=== PATIENT | female | born 1980 | race Two or more races ===

== ENCOUNTER 2017-05-12 14:19 | Emergency (ER) | payer MEDICARE, MEDICAID ==
--- NOTE | 2017-05-12 15:36 | EDM.PDOC ---
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 Time Seen by Provider: 05/12/17 15:00 Source of Information: Reports: Patient History Limitations: Reports: No Limitations - History of Present Illness INITIAL COMMENTS - FREE TEXT/NARRATIVE: 36-year-old female with chronic abdominal pain from ovarian cysts presents with an exacerbation of pain over the past 7-10 days. She lives in [place] but came down here because she doesn't like her hospital. She does not look uncomfortable. She denies any fevers or chills, she is still having menstruation despite being on Mirena control for the past 4 months. 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 She she does think she may be possibly . She has needed surgeries in the past to decompress to ovarian cysts. Onset: Unknown/Unsure Duration: Day(s): (Symptoms have been ongoing for days, at least 7) Location: Reports: Abdomen Quality: Reports: Ache Severity: Mild Worsens with: Reports: Heat Therapy Associated Symptoms: Reports: No Other Symptoms Bilateral Pelvic Pain Score (Numeric/FACES): 5 - Related Data Allergies Allergy/AdvReac Type Severity Reaction Status Date / Time hydromorphone [From Dilaudid] Allergy Itching Verified 05/12/17 14:39 Home Meds: Home Meds Acetaminophen 500 mg PO ASDIRECTED PRN 05/12/17 [History] Albuterol [IJD: Albuterol HFA] 1 - 2 inhaler PO ASDIRECTED PRN 05/12/17 [History ] Albuterol [Proventil Neb Soln] 2.5 mg IH ASDIRECTED 05/12/17 [History] Brexpiprazole [Rexulti] 1.5 tab PO BEDTIME 05/12/17 [History] Cholecalciferol (Vitamin D3) [Vitamin D3] 5,000 units PO DAILY 05/12/17 [History ] Cyclobenzaprine [Flexeril] 10 mg PO ASDIRECTED PRN 05/12/17 [History] Escitalopram [Lexapro] 20 mg PO BEDTIME 05/12/17 [History] Gabapentin [Neurontin] 300 mg PO BEDTIME 05/12/17 [History] Ibuprofen 400 mg PO ASDIRECTED 05/12/17 [History] Insulin Glarg,Human.Rec.Analog [Lantus] 10 units SQ BEDTIME 05/12/17 [History] Iron 18 mg PO BID 05/12/17 [History] Levonorgestrel [Mirena] 20 mcg IUTERINE 05/12/17 [History] Liraglutide [Victoza] 1.8 mg SQ DAILY 05/12/17 [History] Mirtazapine 15 mg PO ASDIRECTED PRN 05/12/17 [History] OLANZapine [ZyPREXA] 20 mg PO DAILY 05/12/17 [History] Omeprazole 40 mg PO DAILY 05/12/17 [History] Ondansetron HCl [Ondansetron] 8 mg PO TID 05/12/17 [History] Prochlorperazine [Compazine] 5 mg PO ASDIRECTED 05/12/17 [History] Propranolol [Inderal] 40 mg PO BID 05/12/17 [History] SUMAtriptan [Imitrex] 6 mg SQ ASDIRECTED 05/12/17 [History] Topiramate 50 mg PO BID 05/12/17 [History] Varenicline [Chantix] 1 mg PO BID 05/12/17 [History] hydrOXYzine Pamoate [Hydroxyzine Pamoate] 50 mg PO ASDIRECTED 05/12/17 [History] lamoTRIgine [Lamotrigine ER] 75 mg PO BEDTIME 05/12/17 [History] traMADol [Ultram] 50 mg PO ASDIRECTED 05/12/17 [History] Past Medical History 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: Neurological History: Reports: Migraines Psychiatric History: Reports: Bipolar, Schizophrenia Other Psychiatric History: BODERLINE PERSONALITY Endocrine/Metabolic History: Reports: Diabetes, Type II Hematologic History: Reports: Anemia - Infectious Disease History Infectious Disease History: Reports: MRSA - Past Surgical History Other HEENT Surgeries/Procedures: CURRENT BIALT EAR INFECTION GI Surgical History: Reports: Cholecystectomy, Mary Fundoplication Female Surgical History: Reports: Section Other Female Surgeries/Procedures: R OVARIAN CYST REMOVAL Other Musculoskeletal Surgeries/Procedures:: L HAND FX Social & Family History - Tobacco Use Smoking Status *Q: Unknown Ever Smoked ED ROS GENERAL - Review of Systems Review Of Systems: See Below Constitutional: Denies: Fever, Chills Respiratory: Denies: Shortness of Breath Cardiovascular: Denies: Chest Pain GI/Abdominal: Denies: Nausea, Vomiting : Reports: No Symptoms Skin: Reports: No Symptoms Neurological: Denies: Headache ED EXAM, GI/ABD - Physical Exam Exam: See Below Exam Limited By: No Limitations General Appearance: Alert, No Apparent Distress Eyes: Bilateral: Normal Appearance Respiratory/Chest: No Respiratory Distress GI/Abdominal Exam: Other (Patient is morbidly obese but reacts with tenderness to palpation anywhere across the lower abdomen) Neurological: Alert, Oriented Psychiatric: Normal Affect, Normal Mood Skin Exam: Warm, Dry Course - Vital Signs Last Recorded V/S: Last Vital Signs Temp 97.3 F 05/12/17 14:37 Pulse 76 05/12/17 14:37 Resp 16 05/12/17 14:37 BP 122/55 L 05/12/17 14:37 Pulse Ox 97 05/12/17 14:37 - Orders/Labs/Meds Orders: Active Orders 24 hr Category Date Time Status Pelvis Non OB Ltd [US] Stat Exams 05/12/17 16:18 Taken Transvaginal Non OB [US] Stat Exams 05/12/17 16:18 Taken Labs: Laboratory Tests 05/12/17 05/12/17 05/12/17 Range/Units 15:22 15:22 15:24 WBC 9.5 (4.5-11.0) K/uL RBC 4.97 (3.30-5.50) M/uL Hgb 15.1 H (12.0-15.0) g/dL Hct 42.5 (36.0-48.0) % MCV 86 (80-98) fL MCH 30 (27-31) pg MCHC 36 (32-36) % Plt Count 304 (150-400) K/uL Neut % (Auto) 66 (36-66) % Lymph % (Auto) 24 (24-44) % Glenn % (Auto) 9 H (2-6) % Eos % (Auto) 1 L (2-4) % Baso % (Auto) 1 (0-1) % Sodium (140-148) mmol/L Potassium (3.6-5.2) mmol/L Chloride (100-108) mmol/L Carbon Dioxide (21-32) mmol/L Anion Gap (5.0-14.0) mmol/L BUN (7-18) mg/dL Creatinine (0.6-1.0) mg/dL Est Cr Clr Drug Dosing mL/min Estimated GFR (MDRD) (>60) Glucose (74-106) mg/dL Calcium (8.5-10.1) mg/dL Total Bilirubin (0.2-1.0) mg/dL AST (15-37) U/L ALT (12-78) U/L Alkaline Phosphatase (46-116) U/L Total Protein (6.4-8.2) g/dL Albumin (3.4-5.0) g/dL Globulin (2.3-3.5) g/dL Albumin/Globulin Ratio (1.2-2.2) Urine Color Yellow Urine Appearance Slightly cloudy Urine pH 6.0 (4.5-8.0) Ur Specific Hamilton 1.015 (1.008-1.030) Urine Protein Negative (NEGATIVE) mg/dL Urine Glucose (UA) 1000 H (NEGATIVE) mg/dL Urine Ketones Negative (NEGATIVE) mg/dL Urine Occult Blood Large (NEGATIVE) Urine Nitrite Negative (NEGATIVE) Urine Bilirubin Negative (NEGATIVE) Urine Urobilinogen Normal (NORMAL) mg/dL Ur Leukocyte Esterase Negative (NEGATIVE) Urine RBC 40-50 H (0-5) Urine WBC 5-10 H (0-5) Ur Epithelial Cells Few Amorphous Sediment Not seen Urine Bacteria Many Urine Mucus Few Urine HCG, Qual Negative 05/12/17 Range/Units 15:24 WBC (4.5-11.0) K/uL RBC (3.30-5.50) M/uL Hgb (12.0-15.0) g/dL Hct (36.0-48.0) % MCV (80-98) fL MCH (27-31) pg MCHC (32-36) % Plt Count (150-400) K/uL Neut % (Auto) (36-66) % Lymph % (Auto) (24-44) % Glenn % (Auto) (2-6) % Eos % (Auto) (2-4) % Baso % (Auto) (0-1) % Sodium 140 (140-148) mmol/L Potassium 4.0 (3.6-5.2) mmol/L Chloride 105 (100-108) mmol/L Carbon Dioxide 25 (21-32) mmol/L Anion Gap 10.3 (5.0-14.0) mmol/L BUN 11 (7-18) mg/dL Creatinine 1.0 (0.6-1.0) mg/dL Est Cr Clr Drug Dosing 68.45 mL/min Estimated GFR (MDRD) > 60 (>60) Glucose 293 H (74-106) mg/dL Calcium 9.5 (8.5-10.1) mg/dL Total Bilirubin 0.5 (0.2-1.0) mg/dL AST 29 (15-37) U/L ALT 50 (12-78) U/L Alkaline Phosphatase 87 (46-116) U/L Total Protein 7.5 (6.4-8.2) g/dL Albumin 3.7 (3.4-5.0) g/dL Globulin 3.8 H (2.3-3.5) g/dL Albumin/Globulin Ratio 1.0 L (1.2-2.2) Urine Color Urine Appearance Urine pH (4.5-8.0) Ur Specific Hamilton (1.008-1.030) Urine Protein (NEGATIVE) mg/dL Urine Glucose (UA) (NEGATIVE) mg/dL Urine Ketones (NEGATIVE) mg/dL Urine Occult Blood (NEGATIVE) Urine Nitrite (NEGATIVE) Urine Bilirubin (NEGATIVE) Urine Urobilinogen (NORMAL) mg/dL Ur Leukocyte Esterase (NEGATIVE) Urine RBC (0-5) Urine WBC (0-5) Ur Epithelial Cells Amorphous Sediment Urine Bacteria Urine Mucus Urine HCG, Qual - Re-Assessments/Exams Free Text/Narrative Re-Assessment/Exam: 05/12/17 15:36 A UA for urine and urinalysis was obtained as well as a CBC and CMP. 05/12/17 17:38 CBC was normal, entire chemistry profile was normal other than glucose of 236. She did have a few bacteria and RBCs in her urine but no significant white blood cells. She has no urinary symptoms. An ultrasound was then obtained of the lower abdomen including a vaginal probe, some small ovarian cysts were seen on the left ovary but no free fluid or other abnormality. 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 No further treatment or evaluation was necessary at this time. Departure - Departure Time of Disposition: 18:03 Disposition: Home, Self-Care 01 Condition: Good Clinical Impression: Pelvic pain Ovarian cyst Qualifiers: Laterality: left Qualified Code(s): N83.202 - Unspecified ovarian cyst, left side - Discharge Information Instructions: Ovarian Cyst, [id number] Referrals: Nilesh Caballero MD [Primary Care Provider] - Forms: ED Department Discharge Care Plan Goals: Recheck next week with your primary provider and continue with your Tylenol and ibuprofen for pain. Recheck sooner if worsening. - My Orders Last 24 Hours: My Active Orders 05/12/17 16:18 Pelvis Non OB Ltd [US] Stat Transvaginal Non OB [US] Stat - Assessment/Plan Last 24 Hours: My Active Orders 05/12/17 16:18 Pelvis Non OB Ltd [US] Stat Transvaginal Non OB [US] Stat
== END 2017-05-12 18:04 | disposition home or self-care (01) ==
LOC: JP.ED 14:19
DX: N83.202 Unspecified ovarian cyst, left side (principal); E11.9 Type 2 diabetes mellitus without complications; Z79.899 Other long term (current) drug therapy; Z79.4 Long term (current) use of insulin; Z88.6 Allergy status to analgesic agent
CPT/HCPCS: 36415; 76830; 76857; 80053; 81001; 81025; 85025; 99284-25

== ENCOUNTER 2018-11-28 07:15 | Inpatient (IN) | payer MEDICARE, MEDICAID ==
[~2018-11-28 07:15] MED LIST: cefOXitin 2 GM Vial ONE
[2018-11-28] MEDS ORDERED: Gabapentin 300 MG Cap PO ONE (08:15)
[2018-11-28] MEDS ORDERED: Scopolamine 1.5 MG Transdermal Patch TRDERM SCH (08:15)
[2018-11-28] MEDS ORDERED: Celecoxib 200 MG Cap PO ONE (08:15)
[2018-11-28] MEDS ORDERED: Acetaminophen 500 MG Tab PO ONE (08:15)
[2018-11-28] MEDS ORDERED: Dextrose 5%-Lactated Ringers 1,000 ML IV SCH ×2 (08:30→12:45)
[2018-11-28] MEDS ORDERED: fentaNYL 250 MCG/5 ML SDV ONE (08:43)
[2018-11-28] MEDS ORDERED: Succinylcholine 200 MG/10 ML MDV ONE (08:43)
[2018-11-28] MEDS ORDERED: Glycopyrrolate 0.2 MG/ML 5 ML MDV ONE (08:43)
[2018-11-28] MEDS ORDERED: Propofol 200 MG/20 ML SDV ONE (08:43)
[2018-11-28] MEDS ORDERED: Ondansetron 4 MG/2 ML SDV ONE (08:43)
[2018-11-28] MEDS ORDERED: Dexamethasone 4 MG/ML SDV ONE (08:43)
[2018-11-28] MEDS ORDERED: Neostigmine Methylsulfate 1 MG/ML 5 ML Syringe ONE (08:43)
[2018-11-28] MEDS ORDERED: Rocuronium 50 MG/5 ML Vial ONE (08:43)
[2018-11-28] MEDS ORDERED: Lactated Ringers 1,000 ML ONE (08:45)
[2018-11-28] MEDS ORDERED: Albuterol/Ipratropium 3.0-0.5 MG/3 ML Neb Soln NEB ONE (09:30)
[2018-11-28] MEDS ORDERED: cefOXitin 2 GM in Sodium Chloride 0.9% 50 ML IV ONE (09:45)
[2018-11-28] MEDS ORDERED: Ketamine 500 MG/5 ML MDV IV SCH (10:00)
[2018-11-28] MEDS ORDERED: Lidocaine 2% 100 MG/5 ML Syringe IVPUSH SCH (10:00)
[2018-11-28] MEDS ORDERED: Ketamine 50 MG in Sodium Chloride 0.9% 49.5 ML IV SCH (10:00)
[2018-11-28] MEDS ORDERED: Insulin Lispro 100 Unit/ML 3 ML KwikPen SUBCUT ONE (12:25)
[2018-11-28] MEDS ORDERED: Morphine 2 MG/ML Syringe IVPUSH PRN (12:37)
[2018-11-28] MEDS ORDERED: Insulin Lispro 100 Unit/ML 3 ML KwikPen SUBCUT PRN (12:37)
[2018-11-28] MEDS ORDERED: 50% Dextrose in Water 50 ML Syringe IVPUSH PRN (12:37)
[2018-11-28] MEDS ORDERED: Metoclopramide 10 MG/2 ML SDV IVPUSH PRN (12:37)
[2018-11-28] MEDS ORDERED: Glucagon,Human Recombinant 1 MG Vial IM PRN (12:37)
[2018-11-28] MEDS ORDERED: hydrOXYzine HCl 100 MG/2 ML SDV IM PRN (12:37)
[2018-11-28] MEDS ORDERED: diphenhydrAMINE 50 MG/ML SDV IVPUSH PRN (12:37)
[2018-11-28] MEDS ORDERED: Labetalol 20 MG/4 ML Syringe IVPUSH PRN (12:37)
[2018-11-28] MEDS ORDERED: Albuterol/Ipratropium 3.0-0.5 MG/3 ML Neb Soln INH PRN (12:37)
[2018-11-28] MEDS ORDERED: Lactated Ringers 1,000 ML IV SCH (12:45)
[2018-11-28] MEDS: Morphine 4 MG/ML Syringe IVPUSH PRN ×2 (13:11→16:58)
[2018-11-28] MEDS: Ondansetron 4 MG/2 ML SDV IVPUSH PRN ×2 (13:17→20:58)
[2018-11-28] MEDS: Lidocaine 0.4%/D5W 2 GM/500 ML BAG IV SCH (13:18)
[2018-11-28] MEDS: Albuterol/Ipratropium 3.0-0.5 MG/3 ML Neb Soln INH SCH ×2 (14:47→20:55)
[2018-11-28] MEDS: Gabapentin 250 MG/5 ML Solution ML 470 ML Bottle PO SCH ×2 (14:53→20:50)
[2018-11-28] MEDS: Furosemide 20 MG Tab PO SCH (14:53)
[2018-11-28] MEDS ORDERED: Pantoprazole 40 MG Vial IVPUSH SCH (16:00)
[2018-11-28] MEDS: cefOXitin 2 GM in Sodium Chloride 0.9% 50 ML IV SCH ×2 (16:04→21:00)
[2018-11-28] MEDS: Acetaminophen 325 MG Tab PO SCH ×2 (16:58→22:03)
[2018-11-28] MEDS: Heparin Sodium 5,000 Units/ML Vial SUBCUT SCH (17:38)
[2018-11-28] MEDS: MVI, Adult with Vitamin K 10 ML, Thiamine 200 MG, Chromium/Copper/Mang/Selen/Zn 1 ML in... IV SCH ×4 (17:39)
[2018-11-28] MEDS: carBAMazepine 100 MG Cap.ER PO SCH (20:50)
[2018-11-28] MEDS: Escitalopram 10 MG Tab PO SCH (20:50)
[2018-11-28] MEDS: Propranolol 40 MG Tab PO SCH (20:50)
[2018-11-28] MEDS: Benztropine 1 MG Tab PO SCH (20:51)
[2018-11-28] MEDS: Haloperidol 5 MG Tab PO SCH (20:51)
[2018-11-28] MEDS ORDERED: Haloperidol 5 MG Tab PO SCH (21:00)
[2018-11-29] MEDS ORDERED: Iopamidol 612 MG/ML 50 ML SDV PO STA (03:03)
[2018-11-29] MEDS: Acetaminophen 325 MG Tab PO SCH ×4 (03:51→21:23)
[2018-11-29] MEDS: cefOXitin 2 GM in Sodium Chloride 0.9% 50 ML IV SCH (03:51)
--- NOTE | 2018-11-29 04:10 | CRLCR ---
Indication: S/p gases Pool surgery, evaluate for leakage Technique: Abdomen modified upper GI Comparison: None Findings: Transit of oral contrast across the remnant stomach and into the jejunum with no evidence of leakage. Impression: No evidence of oral contrast leakage. Dictated by Philippe Lopez MD @ Nov 29 2018 4:08AM Signed by Dr. Philippe Lopez @ Nov 29 2018 4:09AM
[2018-11-29] MEDS: Heparin Sodium 5,000 Units/ML Vial SUBCUT SCH ×2 (05:07→18:43)
[2018-11-29] MEDS: Albuterol/Ipratropium 3.0-0.5 MG/3 ML Neb Soln INH SCH ×4 (07:16→21:23)
[2018-11-29] MEDS ORDERED: Ondansetron 4 MG Tab.DIS PO PRN (08:01)
[2018-11-29] MEDS ORDERED: Dextrose 5%-Lactated Ringers 1,000 ML IV SCH (08:15)
[2018-11-29] MEDS: Celecoxib 200 MG Cap PO SCH (08:52)
[2018-11-29] MEDS: Gabapentin 250 MG/5 ML Solution ML 470 ML Bottle PO SCH ×3 (08:52→21:23)
[2018-11-29] MEDS: Furosemide 20 MG Tab PO SCH ×2 (09:27→16:11)
[2018-11-29] MEDS: Benztropine 1 MG Tab PO SCH ×2 (09:27→21:24)
[2018-11-29] MEDS: Aspirin 325 MG Tab.EC PO SCH (09:30)
[2018-11-29] MEDS: Propranolol 40 MG Tab PO SCH ×2 (09:31→21:26)
[2018-11-29] MEDS: SCOPOLAMINE PATCH CHECK TOP SCH (09:33)
[2018-11-29] MEDS: buPROPion 150 MG Tab.ER PO SCH (09:36)
[2018-11-29] MEDS: Lidocaine 0.4%/D5W 2 GM/500 ML BAG IV SCH (11:59)
[2018-11-29] MEDS ORDERED: Lactated Ringers 1,000 ML IV SCH (13:45)
[2018-11-29] MEDS: MVI, Adult with Vitamin K 10 ML, Thiamine 200 MG, Chromium/Copper/Mang/Selen/Zn 1 ML in... IV SCH ×4 (16:28)
[2018-11-29] MEDS ORDERED: Pantoprazole 40 MG Delayed-Release Granules 1 Packet PO SCH (16:30)
[2018-11-29] MEDS: Haloperidol 5 MG Tab PO SCH (21:24)
[2018-11-29] MEDS: carBAMazepine 100 MG Cap.ER PO SCH (21:27)
[2018-11-29] MEDS: Escitalopram 10 MG Tab PO SCH (21:28)
[2018-11-29] MEDS ORDERED: Calcium Carbonate 500 MG Tab.Chew PO PRN (22:53)
[2018-11-30] MEDS: Heparin Sodium 5,000 Units/ML Vial SUBCUT SCH (05:10)
[2018-11-30] MEDS: Acetaminophen 325 MG Tab PO SCH ×2 (05:11→09:43)
[2018-11-30] MEDS: Albuterol/Ipratropium 3.0-0.5 MG/3 ML Neb Soln INH SCH (07:19)
[2018-11-30] MEDS ORDERED: Magnesium Hydroxide 400 MG/5 ML Susp 30 ML Cup PO PRN (07:47)
[2018-11-30] MEDS: Celecoxib 200 MG Cap PO SCH (08:07)
[2018-11-30] MEDS: Furosemide 20 MG Tab PO SCH (08:07)
[2018-11-30] MEDS ORDERED: Cyanocobalamin (Vitamin B12) 1,000 MCG/ML SDV IM ONE (09:00)
[2018-11-30] MEDS: Benztropine 1 MG Tab PO SCH (09:41)
[2018-11-30] MEDS: Aspirin 325 MG Tab.EC PO SCH (09:41)
[2018-11-30] MEDS: buPROPion 150 MG Tab.ER PO SCH (09:42)
[2018-11-30] MEDS: Propranolol 40 MG Tab PO SCH (09:42)
[2018-11-30] MEDS: SCOPOLAMINE PATCH CHECK TOP SCH (09:45)
[2018-11-30] MEDS: Gabapentin 250 MG/5 ML Solution ML 470 ML Bottle PO SCH (10:15)
--- NOTE | 2018-12-01 10:20 | OR ---
DATE OF PROCEDURE: 11/28/2018 SURGEON: Albino Gomez MD PREOPERATIVE DIAGNOSIS: Morbid obesity. POSTOPERATIVE DIAGNOSES: 1. Morbid obesity. 2. Marked hepatomegaly. 3. Recurrent paraesophageal diaphragmatic hernia. OPERATIVE PROCEDURES: Diagnostic laparoscopy with, 1. Laparoscopic sleeve gastrectomy (49966). 2. Robel-Cut needle liver biopsy (52516). 3. Repair of recurrent paraesophageal diaphragmatic hernia (01059). ANESTHESIA: General. FISH STRINGER ASSEMBLER: Bethany Zuniga PA-C. INDICATIONS FOR PROCEDURE: This is a 38-year-old female presenting with longstanding morbid obesity and increasingly significant comorbidities. She is status post a previous Mary fundoplication. After preoperative evaluation and discussion, she wished to proceed with a sleeve gastrectomy. This was selected as opposed to a gastric bypass due to the patient's extensive psychiatric history and need for stable absorption of her psychiatric medications, which would be more likely to be easy to manage following a sleeve gastrectomy as opposed to a gastric bypass. Potential risks of the procedure per se including bleeding, infection, leaks from GI tract staple line, as well as the remote possibility of cardiopulmonary, septic, or hemorrhagic complications leading to were discussed, and the patient wishes to proceed. DETAILS OF PROCEDURE: The patient was taken to the operating room and placed in a supine position. After general endotracheal anesthesia was induced, the abdomen was prepped and draped. 15 cm inferior and 5 cm to the left of xiphoid process, a transverse incision was made, and the peritoneal cavity entered under direct vision with an Optiview trocar, inflated to 15 mmHg pressure of CO2. Laparoscope was reinserted and no underlying trocar insertion site injuries were seen. Bilateral transversus abdominis plane blocks were then placed. Five additional trocars were then placed across the upper and mid abdomen. General exploration revealed markedly enlarged liver, which was grossly fatty infiltrated. Robel-Cut needle biopsies were then obtained from the left lobe of liver. Minimal bleeding from the biopsy sites was controlled with electrocautery. Liver was then retracted anteriorly. The patient was noted to have some adhesions between the previous Mary fundoplication and the area of the liver and diaphragm. These were taken down. The patient was noted to have a recurrent paraesophageal hernia with some omentum and perigastric fat incarcerated in a plane anterior to the course of the esophagus. The peritoneum overlying this was then divided and reflected downward. The diaphragmatic hernia repair was then accomplished with some 0 Ethibond sutures. At this point, the omentum was divided away from the greater curvature of the stomach, beginning in the mid-greater curvature and then extending up, to include the highest and posterior short gastric vessels, and then extending down 0.2 cm proximal to the pylorus. The dissection portion of the procedure was initiated after marking out the staple line between the antrum and the point to the left of incisura angularis with care taken to avoid overtightening of that area below the incisura angularis to avoid problems with obstruction at that level. The first 3 firings of the staple line were with KODY plain black loads. A 32-Occitan tube was then placed orally and positioned along the greater curvature of the stomach, and from there into the antrum. Once this was pulled up against the greater curvature and suction applied, the remainder of the gastrectomy was accomplished with a series of reinforced black and purple loads, and the resected specimen was then reflected downward toward the left lower quadrant. The patient did have remaining area of fundoplication behind the staple line at the esophagogastric junction, which would likely be beneficial in terms of avoiding recurrent reflux symptoms. All other tissues did not appear to be viable and did appear to be drained in terms of the stomach behind the esophagogastric junction being in continuity with the remainder of the stomach. This area was then reinforced with some 0 Ethibond [id number] seromuscular stitches along with fibrin sealant and some omentum being tacked up into the area of the esophagogastric junction. The remainder of the staple line was also reinforced with some fibrin sealant and then omentum tacked up with several sutures of 3-0 Vicryl stitch to help that remain in position. With the pylorus being compressed, the tube which was in the stomach was taken off suction and with the staple line being submerged within an antibiotic containing saline solution, air was injected which resulted in distention of the stomach, but no leaks being identified. The tube was then removed and the area inspected, no further problems were noted. Single Regis-Phillip drain was then placed through the left lateral trocar site. The stomach specimen prior to that had been removed. The incisions were then closed with 4-0 Vicryl skin stitch. Dressing was applied. The patient was taken to the recovery room in satisfactory condition. Physician nursing home assistant administrator, Bethany Zuniga, played an essential role in assisting in this case, helping to position the patient, retract structures as needed, as well as suturing and cutting sutures when indicated. Her presence improved patient safety and decreased the operative time. Albino Gomez MD /[id number]
--- NOTE | 2018-12-01 13:23 | DISCH ---
FINAL DIAGNOSES: 1. Morbid obesity. 2. Marked hepatomegaly. 3. Paraesophageal diaphragmatic hernia. 4. Personality disorder and bipolar I disorder. 5. Type 2 diabetes mellitus (in resolution postoperatively). 6. Obstructive sleep apnea. 7. History of asthma. 8. History of schizoaffective disorder. OPERATIVE PROCEDURES: Done on 11/28/2018, diagnostic laparoscopy with, 1. Laparoscopic sleeve gastrectomy. 2. Robel-Cut needle liver biopsy. 3. Repair of recurrent paraesophageal diaphragmatic hernia. HOSPITAL COURSE: This is a 38-year-old presenting with longstanding morbid obesity and increasingly significant comorbidities. She has history of type 2 diabetes mellitus, which thus far has been well managed with Victoza. She has history of previous Mary fundoplication. We elected to do a sleeve gastrectomy in this case due to the patient's large amount of psych meds, which with the sleeve gastrectomy will have a little bit more of a stable absorption pattern. Postoperatively, the patient did very well and is tolerating new step-2 diet, which she will be on for 1 month postoperatively. Otherwise, she will resume her usual meds, which she can take intact. We will have her stop the Victoza at this time as the blood sugars off the Victoza and a full-liquid diet with IV of D5LR have been in the 120 range for the last 36 hours. Followup will be with Bethany Zuniga at the [facility] on 12/09/2018. Again, she will be instructed to continue on a step-2 diet full liquid diet until 12/29/2018, and hold the vitamins and other supplements until the first appointment.
--- NOTE | 2018-12-02 18:38 | PN ---
DATE OF SERVICE: 11/29/2018 The patient is postop day #1 from a laparoscopic sleeve gastrectomy along with needle liver biopsy and repair of paraesophageal hernia. Overnight, she has had no major problems. Pain control has been good and oral intake has been satisfactory. She is tolerating her psych medication satisfactorily. We will go up to step-2 diet today. Continue the non-narcotic pain regimen. She will probably be ready for discharge home tomorrow. Albino Gomez MD /[id number]
== END 2018-11-30 09:55 | disposition home or self-care (01) | DRG 621 ==
LOC: EDSTATUS 07:15 → JP.SDSSCHI 07:18 → JP.SDS 07:18 → JP.MS 11:50
PROVIDERS: ADMIT Surgery; ATTEND Surgery
PROC: 0DB64Z3 Excision of Stomach, Percutaneous Endoscopic Approach, Vertical (ICD-10-PCS; principal; 2018-11-28)
PROC: 0BQT4ZZ Repair Diaphragm, Percutaneous Endoscopic Approach (ICD-10-PCS; 2018-11-28)
PROC: 0FB24ZX Excision of Left Lobe Liver, Percutaneous Endoscopic Approach, Diagnostic (ICD-10-PCS; 2018-11-28)
DX: E66.01 Morbid (severe) obesity due to excess calories (principal); R16.0 Hepatomegaly, not elsewhere classified; K44.9 Diaphragmatic hernia without obstruction or gangrene; E11.9 Type 2 diabetes mellitus without complications; G47.33 Obstructive sleep apnea (adult) (pediatric); J45.909 Unspecified asthma, uncomplicated; F25.9 Schizoaffective disorder, unspecified; G43.909 Migraine, unspecified, not intractable, without status migrainosus; K21.9 Gastro-esophageal reflux disease without esophagitis; G89.29 Other chronic pain; M21.6X2 Other acquired deformities of left foot; M21.6X1 Other acquired deformities of right foot; M25.571 Pain in right ankle and joints of right foot; F41.9 Anxiety disorder, unspecified; F32.9 Major depressive disorder, single episode, unspecified; Z91.040 Latex allergy status; Z91.048 Other nonmedicinal substance allergy status; Z87.891 Personal history of nicotine dependence; Z68.41 Body mass index [BMI] 40.0-44.9, adult
CPT/HCPCS: 36415; 74240; 81025; 82962; 86850; 86900; 86901; 94640; A9270-GY; C9113; J0171; J0330; J0694; J1100; J1644; J1815; J1815-GY; J2001; J2270; J2405; J2704; J2710; J2765; J2795; J3010; J3410; J3411; J3420; J3490; J7030; J7042; J7050; J7120; J7620-GY; Q9967

== ENCOUNTER 2019-03-03 09:00 | Day surgery (SDC) | payer MEDICARE, MEDICAID ==
[2019-03-03] MEDS ORDERED: Cyanocobalamin (Vitamin B12) 1,000 MCG/ML SDV IM ONE (09:15)
[2019-03-03] MEDS ORDERED: Lactated Ringers 1,000 ML IV SCH ×2 (09:45→13:00)
[2019-03-03] MEDS ORDERED: Glycopyrrolate 0.2 MG/ML 2 ML SDV IVPUSH ONE (10:30)
[2019-03-03] MEDS ORDERED: MVI, Adult with Vitamin K 10 ML, Thiamine 200 MG, Chromium/Copper/Mang/Selen/Zn 1 ML in... IV ONE ×4 (10:45)
[2019-03-03] MEDS ORDERED: Ondansetron 4 MG/2 ML SDV IVPUSH ONE (12:45)
[2019-03-03] MEDS ORDERED: Propofol 200 MG/20 ML SDV ONE (13:23)
[2019-03-03] MEDS ORDERED: fentaNYL 100 MCG/2 ML SDV ONE (13:23)
[2019-03-03] MEDS ORDERED: Midazolam 1 MG/ML 2 ML SDV ONE (13:23)
--- NOTE | 2019-03-07 14:47 | OR ---
DATE OF PROCEDURE: 03/03/2019 SURGEON: Albino Gomez MD PREOPERATIVE DIAGNOSIS: Dysphagia, status post previous sleeve gastrectomy. POSTOPERATIVE DIAGNOSIS: Normal examination status post sleeve gastrectomy. OPERATIVE PROCEDURE: Upper gastrointestinal endoscopy. ANESTHESIA: IV sedation. INDICATION FOR PROCEDURE: This is a 38-year-old, status post sleeve gastrectomy on November 28, 2018, presents with some dysphagia. The plan is to proceed with an upper GI endoscopy with dilation as indicated. Potential risks including bleeding and perforation were discussed, and the patient wishes to proceed. DETAILS OF PROCEDURE: The patient was taken to the operating room and placed in a left lateral decubitus position. IV sedation was administered, after which, the upper GI endoscope was passed orally through the length of the esophagus, into the stomach and through the length of the sleeve gastrectomy, and from there through the pyloric channel to the junction of 3rd and 4th portions of the duodenum. Findings essentially were entirely normal. There was no significant inflammation of the esophagus, EG junction, or stomach area. There was no narrowing of the EG junction or at any point along the sleeve gastrectomy. The pyloric channel and visualized portions of the duodenum were unremarkable. Scope was then withdrawn and the procedure then concluded. The patient was taken to the recovery room in satisfactory condition. Albino Gomez MD /[id number]
== END 2019-03-03 15:40 | disposition home or self-care (01) ==
LOC: JP.SDS 09:00
PROVIDERS: ATTEND Surgery
DX: R13.10 Dysphagia, unspecified (principal); Z98.84 Bariatric surgery status
CPT/HCPCS: 43235; J2250; J2405; J2704; J3010; J3411; J3420; J3490; J7120